=== PATIENT | female | born 1945 | race Caucasian/White ===

== ENCOUNTER → 2016-06-28 | Outpatient (CLI) | payer MEDICARE, BC | LOC: MC.RAD 12:45 | DX: Z12.31 Encounter for screening mammogram for malignant neoplasm of breast (principal) ==

== ENCOUNTER → 2016-11-05 | Outpatient (REF) | LOC: ZLAB.WCH 11:33 | DX: Z01.89 Encounter for other specified special examinations (principal) ==

== ENCOUNTER → 2017-02-23 | Outpatient (REF) | LOC: ZLAB.WCH 11:02 | DX: Z01.89 Encounter for other specified special examinations (principal) ==

== ENCOUNTER → 2017-06-29 | Outpatient (CLI) | payer MEDICARE, BC, OTHER | LOC: MC.RAD 12:56 | DX: Z12.31 Encounter for screening mammogram for malignant neoplasm of breast (principal); Z00.00 Encounter for general adult medical examination without abnormal findings; M81.0 Age-related osteoporosis without current pathological fracture ==

== ENCOUNTER → 2017-11-18 | Outpatient (REF) | LOC: ZLAB.WCH 15:54 | DX: Z01.89 Encounter for other specified special examinations (principal) ==

== ENCOUNTER → 2018-07-03 | Outpatient (CLI) | payer MEDICARE, BC, OTHER | LOC: MC.RAD 12:52 | DX: Z12.31 Encounter for screening mammogram for malignant neoplasm of breast (principal) ==

== ENCOUNTER → 2019-07-04 | Outpatient (CLI) | payer MEDICARE, BC, OTHER | LOC: MC.RAD 12:55 | DX: Z12.31 Encounter for screening mammogram for malignant neoplasm of breast (principal) ==

== ENCOUNTER → 2020-07-07 | Outpatient (CLI) | payer MEDICARE, BC | LOC: MC.RAD 12:50 | DX: Z12.31 Encounter for screening mammogram for malignant neoplasm of breast (principal); E03.9 Hypothyroidism, unspecified; E78.5 Hyperlipidemia, unspecified; I10 Essential (primary) hypertension ==

== ENCOUNTER → 2021-07-09 | Outpatient (CLI) | payer MEDICARE, BC | LOC: MC.RAD 12:44 | DX: Z12.31 Encounter for screening mammogram for malignant neoplasm of breast (principal) ==

== ENCOUNTER → 2023-07-14 | Outpatient (CLI) | payer MEDICARE, BC | LOC: CANSCHCLI → MC.RAD 09:23 | DX: Z12.31 Encounter for screening mammogram for malignant neoplasm of breast (principal) ==

== ENCOUNTER 2023-08-15 09:06 | Day surgery (SDC) | payer MEDICARE, BC, OTHER ==
[~2023-08-15] VITALS: Ht 170.2 cm; Wt 113.0 kg
[2023-08-15] VITALS (13 sets, daily range): BP systolic 94–151; BP diastolic 55–78; PULSE 65–93; TEMP 97.4–97.6
[~2023-08-15 09:06] MED LIST: Lidocaine PF 2% (20 MG/ML) 5 ML VIAL ONE; NS 0 ML IV ONE; Ondansetron 4 MG/2 ML VIAL ONE; dexAMETHasone 10 MG/ML VIAL ONE; fentaNYL 50 MCG/ML 2 ML VIAL ONE
[2023-08-15] MEDS ORDERED: Tranexamic Acid 1,000 MG/10 ML VIAL ONE ×2 (09:14→11:32)
[2023-08-15] MEDS ORDERED: HYDROmorphone 2 MG/1 ML VIAL IV PRN (09:15)
[2023-08-15] MEDS ORDERED: hydrALAZINE 20 MG/ML 1 ML VIAL IV PRN (09:15)
[2023-08-15] MEDS ORDERED: Naloxone 0.4 MG/ML VIAL IV PRN ×2 (09:15→11:15)
[2023-08-15] MEDS ORDERED: Ondansetron 4 MG/2 ML VIAL IV PRN ×3 (09:15→11:15)
[2023-08-15] MEDS ORDERED: droPERidol 2.5 MG/ML 2 ML VIAL IV PRN (09:15)
[2023-08-15] MEDS ORDERED: Mag/Al Hydrox/Simeth Susp 30 ML CUP PO PRN (09:15)
[2023-08-15] MEDS ORDERED: fentaNYL 50 MCG/ML 2 ML VIAL IV PRN ×2 (09:15)
[2023-08-15] MEDS ORDERED: Acetaminophen 500 MG TAB PO PRN (09:15)
[2023-08-15] MEDS ORDERED: Morphine 4 MG/ML VIAL IV PRN ×2 (09:15→11:15)
[2023-08-15] MEDS ORDERED: Magnes Hydrox (MOM) 80 MG/ML 30 ML CUP PO PRN (09:15)
[2023-08-15] MEDS ORDERED: NS 1,000 ML IV SCH (09:15)
[2023-08-15] MEDS ORDERED: oxyCODONE 5 MG TAB PO PRN ×2 (09:15→11:15)
[2023-08-15] MEDS ORDERED: Bisacodyl 5 MG TAB PO PRN (09:15)
[2023-08-15] MEDS ORDERED: LR 1,000 ML IV SCH (09:15)
[2023-08-15] MEDS ORDERED: Metoclopramide 10 MG TAB PO SCH (09:15)
[2023-08-15] MEDS ORDERED: Famotidine 20 MG TAB PO SCH (09:15)
[2023-08-15] MEDS ORDERED: LEVOXYL0.075 MG PO (10:35)
[2023-08-15] MEDS ORDERED: COZAAR100 MG PO (10:35)
[2023-08-15] MEDS ORDERED: PRISTIQ 50 MG T50 MG PO (10:36)
[2023-08-15] MEDS ORDERED: MOBIC15 MG PO (10:37)
[2023-08-15] MEDS ORDERED: ASPIRIN 81M81 MG/TA2 PO (10:37)
[2023-08-15] MEDS ORDERED: FISH OIL 1000MG1 CAP PO (10:38)
[2023-08-15] MEDS ORDERED: VITAMIN D31000 IU PO (10:38)
[2023-08-15] MEDS ORDERED: NATURAL IRON65 MG PO (10:38)
[2023-08-15] MEDS ORDERED: VITAMINC500CH PO (10:39)
[2023-08-15] MEDS ORDERED: CALCIUM CITRAT200 M2 PO (10:40)
[2023-08-15] MEDS ORDERED: NS 10 ML IV ONE (10:41)
[2023-08-15] MEDS ORDERED: dexAMETHasone 10 MG/ML VIAL ONE (10:41)
[2023-08-15] MEDS ORDERED: Ondansetron 4 MG/2 ML VIAL ONE (10:41)
[2023-08-15] MEDS ORDERED: fentaNYL 50 MCG/ML 2 ML VIAL ONE (10:41)
[2023-08-15] MEDS ORDERED: Midazolam 2 MG/2 ML VIAL ONE (10:41)
[2023-08-15] MEDS ORDERED: Lidocaine PF 2% (20 MG/ML) 5 ML VIAL ONE (10:42)
[2023-08-15] MEDS ORDERED: CRANBERRY FRUI425 MG PO (10:43)
[2023-08-15] MEDS ORDERED: GLUCOSAMIN 500 PO (10:44)
[2023-08-15] MEDS ORDERED: [UNRECOGNIZED DRUG - OTHER] PO (10:47)
[2023-08-15] MEDS ORDERED: GLUCOSAMINE/CHO1 CA4 PO (10:48)
[2023-08-15] MEDS ORDERED: Acetaminophen 500 MG TAB PO SCH ×2 (11:15→12:00)
[2023-08-15] MEDS ORDERED: Ketorolac 15 MG/ML VIAL IV SCH ×2 (11:15→15:00)
[2023-08-15] MEDS ORDERED: D5 1/2 NS 1,000 ML IV SCH (11:15)
[2023-08-15] MEDS ORDERED: Thrombin Human (Recombinant) 5,000 UNITS VIAL TP ONE (11:49)
[2023-08-15] MEDS ORDERED: Phenylephrine 10 MG/ML VIAL ONE (11:50)
[2023-08-15] MEDS ORDERED: NS 100 ML IV ONE (11:50)
[2023-08-15] MEDS ORDERED: ePHEDrine 50 MG/ML VIAL ONE (11:54)
[2023-08-15] MEDS ORDERED: Morphine 4 MG/ML VIAL SQ ONE (12:53)
[2023-08-15] MEDS ORDERED: Ketorolac 30 MG/ML VIAL IM ONE (12:53)
--- NOTE | 2023-08-15 16:52 | NUR ---
PATIENT UP TO FLOOR AT APPROXIMATELY 1425. POST OP VITALS RUNNING. FLUIDS RUNNING AT 100ML/HOUR INTO LEFT HAND. HEMOVAC DRAIN TO COMPRESSION WITH BLOODY OUTPUT. BULKY DRESSING WITH VANESSA WRAP TO RIGHT KNEE. PATIENT DENIES ANY PAIN, N/V. ASSESSMENT PERFORMED. SCHEDULED MEDICATIONS ADMINISTERED. PATIENT TOLERATING PO. NO FURTHER NEEDS. CALL LIGHT IN REACH.
[2023-08-15] MEDS ORDERED: ceFAZolin 2 G in Water For Injection,Sterile 20 ML IV SCH (17:00)
[2023-08-15] MEDS ORDERED: Sennosides/Docusate 8.6-50 MG TAB PO SCH (21:00)
[2023-08-15] MEDS ORDERED: Ascorbic Acid 500 MG TAB PO SCH (21:00)
--- NOTE | 2023-08-15 21:00 | NUR ---
PT AMBULATING IN HALLWAY WITH ONE ASSIST AND WALKER, DOES WELL. SCHEDULED MEDS GIVEN. HAS BULKY DRSG TO RT KNEE, HEMOVAC COMPRESSED. HAS KNEE HIGH CHIQUIS HOSE TO LT LEG. DENIES NEED FOR STRONGER PAIN MEDS AT THIS TIME.
--- NOTE | 2023-08-15 23:47 | NUR ---
PT REPORTS RT KNEE PAIN 11/27, OXYCODONE 5MG PO NOW. AMBULATES IN HALLWAY WITH STAFF PER HER REQUEST.
[2023-08-16] VITALS (7 sets, daily range): BP systolic 103–140; BP diastolic 56–79; PULSE 66–74; TEMP 97.4–98.3
--- NOTE | 2023-08-16 01:07 | NUR ---
REPEATED OXYCODONE FOR PAIN 12/27.
--- NOTE | 2023-08-16 04:43 | NUR ---
Pt ambulating in hallway with walker and SBA. Gait steady.
--- NOTE | 2023-08-16 05:47 | NUR ---
PT IN BED, IS ALERT AND ORIENTED X4. SCHEDULED AM MED GIVEN INCLUDING PRN OXYCODONE 10MG PO NOW.
[2023-08-16] MEDS ORDERED: Magnes Hydrox (MOM) 80 MG/ML 30 ML CUP PO SCH (09:00)
[2023-08-16] MEDS ORDERED: Rivaroxaban 10 MG TAB PO SCH (09:00)
[2023-08-16] MEDS ORDERED: Ferrous Sulfate 325 MG TAB PO SCH (09:00)
--- NOTE | 2023-08-16 09:50 | NUR ---
Lamination Technician met with patient to discuss discharge planning. Patient lives in [place] with her , Omero (ph#[phone]) and sees Obdulia Stanton PA-C for primary care. Patient obtains medications from either [place] [facility] or by mail with no difficulties. Patient has a walker for recovery and normally does not use any DME. Patient is normally independent with [facility] and has outpatient PT set up at the [facility]. Patient advised Omero is her DPOA-HC. Discharge Plan; Home
--- NOTE | 2023-08-16 12:10 | NUR ---
PATIENT CALLED OUT AND REPORTED EMESIS. NOTED APPROX 150CC OF PINK-TINGED EMESIS AFTER PATIENT ATTEMPTED TO EAT JELLO. ALSO NOTED ROUND, WHITE TABLET APPROX THE SIZE OF A PEA IN EMESIS. TO EARLY FOR PRN IV ZOFRAN. PATIENT WANTING TO TRY CRACKERS AND SIPS OF ROOM TEMP 7UP. NURSING ENCOURAGED HER TO TAKE IS SLOW. PATIENT'S AT BEDSIDE. PATIENT DENIES NEEDING ANYTHING ELSE SUCH COOL CLOTH OR ROOM TEMP ADJUSTED. REPORTED TO BEDSIDE RN. PATIENT CURRENTLY FEELS RELIEF AFTER EMESIS.
[2023-08-16 12:43] LABS: BASO % 0.2 % (0.0-2.0); EOS % 0.1 % (0.0-4.0); GRAN # 14.4 K/mm3 (1.4-6.5); GRAN % 84.7 % (42.2-75.2); HEMOGLOBIN 10.9 g/dl (12.5-16.0); LYMPH # 1.2 K/mm3 (1.2-3.4); LYMPH % 7.2 % (20.0-51.0); MEAN CELL VOLUME 86 fl (80.0-100.0); MEAN CORPUSCULAR HEMOGLOBIN 29 pg (27-31); MEAN CORPUSCULAR HGB CONC 34 g/dl (33.0-37.0); MEAN PLATELET VOLUME 9.9 fl (7.4-10.4); MONO # 1.3 K/mm3 (0.1-0.6); MONO % 7.4 % (1.7-9.3); PLATELET COUNT 215 K/mm3 (130-400); RED BLOOD COUNT 3.76 M/mm3 (4.10-5.30); REDCELL DISTRIBUTION WIDTH-CV 13.4 % (11.5-14.5)
[2023-08-16 12:55] LABS: CALCIUM 8.7 mg/dL (8.4-10.2); CREATININE, serum 1.11 mg/dL (0.57-1.11); HEMATOCRIT 32.3 % (37.0-47.0); POTASSIUM 4.4 mmol/L (3.5-4.5)
[2023-08-16] MEDS ORDERED: PERCOCET 325 MG1 TA2 PO (15:29)
[2023-08-16] MEDS ORDERED: CEPHALEXIN500 M1 PO (15:29)
[2023-08-16] MEDS ORDERED: ASPI325T6 PO (15:29)
[2023-08-16] MEDS ORDERED: NORCO 325 MG-51 TAB PO (16:22)
--- NOTE | 2023-08-16 17:48 | NUR ---
DISCHARGE INSTRUCTIONS PROVIDED. PATIENT EDUCATION GIVEN. IV DC'D. FOLLOW UP APPOINTMENT DISCUSSED. MEDICATIONS REVIEWED. PATIENT DENIES ANY QUESTIONS OR CONCERNS. PATIENT ESCORTED OUT VIA WHEELCHAIR.
[2023-08-19] MEDS ORDERED: Celecoxib 200 MG CAP PO SCH (21:00)
[2023-08-20] MEDS ORDERED: Celecoxib 200 MG CAP PO SCH (21:00)
== END 2023-08-16 17:49 | disposition home or self-care (01) ==
LOC: CANPRESDC → SDCO 09:06 → SURG 14:16 → SDCO 08-16 17:49
PROVIDERS: Physician Assistant
DX: M17.11 Unilateral primary osteoarthritis, right knee (principal); E03.9 Hypothyroidism, unspecified; I10 Essential (primary) hypertension; F41.9 Anxiety disorder, unspecified; D64.9 Anemia, unspecified; E87.1 Hypo-osmolality and hyponatremia; D72.829 Elevated white blood cell count, unspecified; E87.20 Acidosis, unspecified; R11.2 Nausea with vomiting, unspecified; Z79.890 Hormone replacement therapy; Z79.899 Other long term (current) drug therapy
CPT/HCPCS: OP; A9284; C1713; C1776; J0665; J0690; J1100; J1580; J1650; J1885; J2250; J2270; J2371; J2405; J2704; J2795; J3010; J7030; J7120